=== PATIENT | male | born 1985 | race Caucasian/White ===

== ENCOUNTER 2020-05-31 20:33 | Emergency (ER) | payer SELFPAY ==
[2020-05-31] MEDS ORDERED: Albuterol/Ipratropium 3.0-0.5 MG/3 ML Neb Soln NEB ONE (21:22)
--- NOTE | 2020-05-31 21:22 | EDM.PDOC ---
ED HPI GENERAL MEDICAL PROBLEM - General Chief Complaint: Cardiovascular Problem Stated Complaint: TIGHTNESS IN CHEST Time Seen by Provider: 05/31/20 21:05 Source of Information: Reports: Patient History Limitations: Reports: No Limitations - History of Present Illness INITIAL COMMENTS - FREE TEXT/NARRATIVE: 35-year-old male arrives with chest pressure and tightness for the past 2 to 3 hours. It occurred 5 hours ago, seemed to go away but for the last 2 hours it has been back. Just feels it is hard to take a breath, really no pain no radiation of pain no diaphoresis no nausea or vomiting. Does has a history of a "stress-induced" small heart attack 7 years ago. He is a smoker, diabetic, and is out of all of his medications but cannot afford them.. He nonspecific with description of his symptoms. 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 Denies: Chest Pain, Cough, Loss of Appetite, Malaise, Nausea/Vomiting, Weakness - Related Data Allergies Allergy/AdvReac Type Severity Reaction Status Date / Time blueberry Allergy Hives Verified 05/31/20 20:48 Latex, Natural Rubber Allergy Swelling Verified 05/31/20 20:48 niacin AdvReac Redness Verified 05/31/20 20:48 Home Meds: Home Meds NK [No Known Home Meds] 05/31/20 [History] Past Medical History Cardiovascular History: Reports: Heart Murmur, Hypertension, [place] Respiratory History: Reports: COPD Psychiatric History: Reports: Depression, Psych Hospitalization(s), PTSD, Suicide Attempt, Other (See Below) Other Psychiatric History: schizoaffective Endocrine/Metabolic History: Reports: Diabetes, Type II, Obesity/BMI 30+ Dermatologic History: Reports: Other (See Below) Other Dermatologic History: cyst - Infectious Disease History Infectious Disease History: Reports: Chicken Pox Social & Family History - Tobacco Use Smoking Status *Q: Current Every Day Smoker Years of Tobacco use: 25 Packs/Tins Daily: 1 Used Tobacco, but Quit: No Second Hand Smoke Exposure: No - Caffeine Use Caffeine Use: Reports: Coffee, Energy Drinks - Recreational Drug Use Recreational Drug Use: No ED ROS GENERAL - Review of Systems Review Of Systems: See Below Constitutional: Denies: Fever, Chills, Malaise Respiratory: Reports: Shortness of Breath GI/Abdominal: Denies: Nausea, Vomiting : Reports: No Symptoms Musculoskeletal: Reports: Back Pain (Chronic and unchanged) ED EXAM, GENERAL - Physical Exam Exam: See Below Exam Limited By: No Limitations General Appearance: Alert, No Apparent Distress Eye Exam: Bilateral Eye: Other (Patient has a lazy left eye causing a di sconjugate gaze) Head: Atraumatic Neck: Supple, Non-Tender Respiratory/Chest: Wheezing (Patient has fairly scattered expiratory wheezes present) Cardiovascular: Regular Rate, Rhythm. No: No Murmur GI/Abdominal: Soft, Non-Tender, Other (Moderate obese) Extremities: No: Pedal Edema Neurological: Alert, Oriented, No Motor/Sensory Deficits Psychiatric: Normal Affect, Normal Mood Skin Exam: Warm, Dry EKG INTERPRETATION Rhythm: NSR EKG Interpretation Comments: No previous EKGs for comparison, patient does have some evidence of an old infarct with inferior Q waves in 3 and aVR. There is no ST changes. CBC CMP and troponin were obtained and the patient was given a DuoNeb. Course - Vital Signs Last Recorded V/S: Last Vital Signs Temp 95.2 F L 05/31/20 21:00 Pulse 95 05/31/20 21:46 Resp 18 05/31/20 21:46 BP 119/83 05/31/20 21:46 Pulse Ox 94 L 05/31/20 21:46 - Orders/Labs/Meds Orders: Active Orders 24 hr Category Date Time Status EKG Documentation Completion [RC] ASDIRECTED Care 05/31/20 21:17 Active RT Aerosol Therapy [RC] ASDIRECTED Care 05/31/20 21:22 Active EKG 12 Lead [EK] Routine Ther 05/31/20 21:17 Ordered Labs: Laboratory Tests 05/31/20 05/31/20 Range/Units 21:29 21:29 WBC 9.5 (4.5-11.0) K/uL RBC 5.00 (4.30-5.90) M/uL Hgb 15.8 H (12.0-15.0) g/dL Hct 44.5 (40.0-54.0) % MCV 89 (80-98) fL MCH 32 H (27-31) pg MCHC 36 (32-36) % Plt Count 170 (150-400) K/uL Neut % (Auto) 50 (36-66) % Lymph % (Auto) 42 (24-44) % [place] % (Auto) 6 (2-6) % Eos % (Auto) 2 (2-4) % Baso % (Auto) 1 (0-1) % Sodium 138 L (140-148) mmol/L Potassium 3.6 (3.6-5.2) mmol/L Chloride 99 L (100-108) mmol/L Carbon Dioxide 29 (21-32) mmol/L Anion Gap 13.6 (5.0-14.0) mmol/L BUN 9 (7-18) mg/dL Creatinine 1.0 (0.8-1.3) mg/dL Est Cr Clr Drug Dosing 107.72 mL/min Estimated GFR (MDRD) > 60 (>60) Glucose 383 H (74-106) mg/dL Calcium 8.4 L (8.5-10.1) mg/dL Total Bilirubin 0.9 (0.2-1.0) mg/dL AST 22 (15-37) U/L ALT 56 (12-78) U/L Alkaline Phosphatase 64 (46-116) U/L Troponin I < 0.017 (0.000-0.056) ng/mL Total Protein 7.3 (6.4-8.2) g/dL Albumin 3.6 (3.4-5.0) g/dL Globulin 3.7 H (2.3-3.5) g/dL Albumin/Globulin Ratio 1.0 L (1.2-2.2) Meds: Medications Discontinued Medications Generic Name Dose Route Start Last Admin Trade Name Freq PRN Reason Stop Dose Admin Albuterol/Ipratropium 3 ml 05/31/20 21:22 05/31/20 21:28 Duoneb 3.0-0.5 Mg/3 Ml NEB 05/31/20 21:23 3 ml ONETIME ONE Administration - Re-Assessments/Exams Free Text/Narrative Re-Assessment/Exam: 05/31/20 22:01 Patient was given a DuoNeb which resolved the symptoms almost immediately. CBC CMP were normal other than a glucose of 383, troponin was 0. EKG was negative. 05/31/20 22:01 Patient will be discharged with an albuterol handheld metered-dose inhaler, encouraged to get back on his metformin as soon as possible. He will also try to reduce his smoking. Departure - Departure Time of Disposition: 22:18 Disposition: Home, Self-Care 01 Clinical Impression: Poorly controlled type 2 diabetes mellitus Acute asthma exacerbation Qualifiers: Asthma severity: mild Asthma persistence: intermittent Qualified Code(s): J45.21 - Mild intermittent asthma with (acute) exacerbation Instructions: Hyperglycemia, [id number] Referrals: PCP,None [Primary Care Provider] - Forms: ED Department Discharge Care Plan Goals: Use your inhaler as needed for chest tightness or wheezing, try to reduce your smoking and it is very important for you to start taking care of your diabetes. Obtain a physician here in [place] as soon as possible to establish care. Sepsis Event Note (ED) - Evaluation Sepsis Screening Result: No Definite Risk - Focused Exam Vital Signs: Vital Signs Temp Pulse Resp BP Pulse Ox 05/31/20 21:46 95 18 119/83 94 L 05/31/20 21:30 92 110/80 05/31/20 21:04 92 140/83 05/31/20 21:00 95.2 F L 108 H 18 143/95 H 96 05/31/20 20:49 95.2 F L 108 H 18 143/95 H 96 - My Orders Last 24 Hours: My Active Orders 05/31/20 21:17 EKG Documentation Completion [RC] ASDIRECTED EKG 12 Lead [EK] Routine 05/31/20 21:22 RT Aerosol Therapy [RC] ASDIRECTED - Assessment/Plan Last 24 Hours: My Active Orders 05/31/20 21:17 EKG Documentation Completion [RC] ASDIRECTED EKG 12 Lead [EK] Routine 05/31/20 21:22 RT Aerosol Therapy [RC] ASDIRECTED
== END 2020-05-31 22:18 | disposition home or self-care (01) ==
LOC: JP.ED 20:33
DX: J45.21 Mild intermittent asthma with (acute) exacerbation (principal); E11.65 Type 2 diabetes mellitus with hyperglycemia; I10 Essential (primary) hypertension; I25.2 Old myocardial infarction; E66.9 Obesity, unspecified; F17.210 Nicotine dependence, cigarettes, uncomplicated; Z88.1 Allergy status to other antibiotic agents; Z91.040 Latex allergy status; Z91.018 Allergy to other foods; Z68.41 Body mass index [BMI] 40.0-44.9, adult
CPT/HCPCS: 36415; 80053; 84484; 85025; 93005; 94640; 99285-25; J7620-GY

== ENCOUNTER 2020-08-04 12:07 | Emergency (ER) | payer MEDICAID ==
--- NOTE | 2020-08-04 13:24 | EDM.PDOC ---
ED HPI GENERAL MEDICAL PROBLEM - General Chief Complaint: Cardiovascular Problem Stated Complaint: CHEST PAIN VIA [place]TH Time Seen by Provider: 08/04/20 12:11 Source of Information: Reports: Patient, EMS History Limitations: Reports: No Limitations - History of Present Illness INITIAL COMMENTS - FREE TEXT/NARRATIVE: 35-year-old male presents via EMS to the emergency department for evaluation of chest pain. Just prior to arrival patient was mowing the yard per his report when he developed sudden pain in the left anterior chest rating into his left arm. He states that this caused him to pass out for 20 to 30 seconds. He now reports ongoing pain in the left chest with touch to the area. He denies any injury to the area. He reports no associated nausea, vomiting, shortness of breath. Patient denies any illicit drug use such as methamphetamine, cocaine, heroin but admits to a history greater than 8 years ago. Denies any current alcohol use. Admits to tobacco use. Reports history of diabetes and compliance with medications. Denies any recent cough, fever, diarrhea, abdominal pain or vomiting. Patient reports no other associated symptoms. Onset: Today Onset Date: 08/04/20 Onset Time: 11:30 Duration: Constant Location: Reports: Chest (Patient) Quality: Reports: Sharp Severity: Moderate Improves with: Reports: None Worsens with: Reports: Movement Context: Reports: Activity (2) Associated Symptoms: Denies: Cough, Diaphoresis, Fever/Chills, Nausea/Vomiting, Shortness of Breath Treatments [employer]: Reports: See EMS Report Left Chest Pain Score (Numeric/FACES): 6 - Related Data Allergies Allergy/AdvReac Type Severity Reaction Status Date / Time blueberry Allergy Hives Verified 08/04/20 12:13 Latex, Natural Rubber Allergy Swelling Verified 08/04/20 12:13 niacin AdvReac Redness Verified 08/04/20 12:13 Home Meds: Home Meds Gabapentin [Neurontin] 100 mg PO BID 08/04/20 [History] Insulin Glarg,Human.Rec.Analog [Lantus Solostar] 25 units SQ BEDTIME 08/04/20 [History] Nicotine [Nicotine Patch] 1 patch TOP DAILY 08/04/20 [History] OLANZapine [Zyprexa] 5 mg PO BEDTIME 08/04/20 [History] metFORMIN [Glucophage XR] 2 tab PO BID 08/04/20 [History] Past Medical History HEENT History: Reports: Hard of Hearing, Impaired Vision Cardiovascular History: Reports: Heart Murmur, Hypertension, [place] Respiratory History: Reports: COPD Musculoskeletal History: Reports: Back Pain, Chronic Psychiatric History: Reports: Depression, Psych Hospitalization(s), PTSD, Suicide Attempt, Other (See Below) Other Psychiatric History: schizoaffective Endocrine/Metabolic History: Reports: Diabetes, Type II, Obesity/BMI 30+ Dermatologic History: Reports: Other (See Below) Other Dermatologic History: cyst - Infectious Disease History Infectious Disease History: Reports: Chicken Pox - Past Surgical History Head Surgeries/Procedures: Reports: None HEENT Surgical History: Reports: None Cardiovascular Surgical History: Reports: None Respiratory Surgical History: Reports: None Endocrine Surgical History: Reports: None Musculoskeletal Surgical History: Reports: None Dermatological Surgical History: Reports: None Social & Family History - Tobacco Use Smoking Status *Q: Current Every Day Smoker Years of Tobacco use: 25 Packs/Tins Daily: 2 - Caffeine Use Caffeine Use: Reports: Coffee, Energy Drinks, Soda, Tea - Recreational Drug Use Recreational Drug Use: No ED ROS GENERAL - Review of Systems Review Of Systems: Comprehensive ROS is negative, except as noted in HPI. ED EXAM, GENERAL - Physical Exam Exam: See Below Exam Limited By: No Limitations General Appearance: Alert, WD/WN, No Apparent Distress Head: Atraumatic, Normocephalic Neck: Normal Inspection, Supple, Non-Tender, Full Range of Motion Respiratory/Chest: No Respiratory Distress, Lungs Clear, Normal Breath Sounds, No Accessory Muscle Use, Other (Reproducible left anterior chest wall tenderness) Cardiovascular: Normal Peripheral Pulses, Regular Rate, Rhythm, No Edema, No Gallop, No JVD, No Murmur, No Rub Peripheral Pulses: 2+: Radial (L), Radial (R) GI/Abdominal: Normal Bowel Sounds, Soft, Non-Tender, No Distention Back Exam: Normal Inspection, Full Range of Motion Extremities: Normal Inspection, Normal Range of Motion, Non-Tender, Normal Capillary Refill, No Pedal Edema Neurological: Alert, Oriented, Normal Cognition, Normal Gait, No Motor/Sensory Deficits Psychiatric: Anxious Skin Exam: Warm, Dry, Intact, Normal Color, No Rash. No: Cyanosis, Diaphoretic EKG INTERPRETATION EKG Date: 08/04/20 Time: 12:36 Rhythm: NSR Rate (Beats/Min): 93 [place]: Normal P-Wave: Present QRS: Normal ST-T: Normal QT: Normal Comparison: NA - No Prior EKG EKG Interpretation Comments: Normal sinus rhythm with LVH Course - Vital Signs Last Recorded V/S: Last Vital Signs Temp 96.1 F L 08/04/20 12:10 Pulse 85 08/04/20 15:03 Resp 11 L 08/04/20 15:03 BP 146/80 H 08/04/20 15:03 Pulse Ox 96 08/04/20 15:03 - Orders/Labs/Meds Orders: Active Orders 24 hr Category Date Time Status Chest 2V [CR] Stat Exams 08/04/20 13:18 Taken EKG 12 Lead [EK] Stat Ther 08/04/20 12:12 Ordered Labs: Laboratory Tests 08/04/20 08/04/20 08/04/20 Range/Units 12:22 12:22 12:22 WBC 9.3 (4.5-11.0) K/uL RBC 4.84 (4.30-5.90) M/uL Hgb 14.9 (12.0-15.0) g/dL Hct 43.0 (40.0-54.0) % MCV 89 (80-98) fL MCH 31 (27-31) pg MCHC 35 (32-36) % Plt Count 191 (150-400) K/uL Neut % (Auto) 61 (36-66) % Lymph % (Auto) 31 (24-44) % [place] % (Auto) 6 (2-6) % Eos % (Auto) 2 (2-4) % Baso % (Auto) 0 (0-1) % D-Dimer, Quantitative < 100 (0.0-400.0) ng/mL Sodium 137 L (140-148) mmol/L Potassium 3.6 (3.6-5.2) mmol/L Chloride 101 (100-108) mmol/L Carbon Dioxide 23 (21-32) mmol/L Anion Gap 16.6 H (5.0-14.0) mmol/L BUN 9 (7-18) mg/dL Creatinine 0.9 (0.8-1.3) mg/dL Est Cr Clr Drug Dosing 112.38 mL/min Estimated GFR (MDRD) > 60 (>60) Glucose 292 H (74-106) mg/dL Calcium 8.5 (8.5-10.1) mg/dL Troponin I < 0.017 (0.000-0.056) ng/mL 08/04/20 Range/Units 14:39 WBC (4.5-11.0) K/uL RBC (4.30-5.90) M/uL Hgb (12.0-15.0) g/dL Hct (40.0-54.0) % MCV (80-98) fL MCH (27-31) pg MCHC (32-36) % Plt Count (150-400) K/uL Neut % (Auto) (36-66) % Lymph % (Auto) (24-44) % [place] % (Auto) (2-6) % Eos % (Auto) (2-4) % Baso % (Auto) (0-1) % D-Dimer, Quantitative (0.0-400.0) ng/mL Sodium (140-148) mmol/L Potassium (3.6-5.2) mmol/L Chloride (100-108) mmol/L Carbon Dioxide (21-32) mmol/L Anion Gap (5.0-14.0) mmol/L BUN (7-18) mg/dL Creatinine (0.8-1.3) mg/dL Est Cr Clr Drug Dosing mL/min Estimated GFR (MDRD) (>60) Glucose (74-106) mg/dL Calcium (8.5-10.1) mg/dL Troponin I < 0.017 (0.000-0.056) ng/mL Meds: Medications Discontinued Medications Generic Name Dose Route Start Last Admin Trade Name Freq PRN Reason Stop Dose Admin Ketorolac Tromethamine 15 mg 08/04/20 13:29 08/04/20 13:35 Toradol IM 08/04/20 13:30 15 mg ONETIME ONE Administration - Radiology Interpretation Free Text/Narrative:: 2 views of the chest were obtained AP and lateral Indication chest pain Visualized portion of the lungs are clear without evidence of infiltrate, effusion or pneumothorax. Cardiac silhouette is within normal limits. Mediastinum within normal limits. Visualized bony structures normal in appearance. Departure - Departure Time of Disposition: 15:00 Disposition: Home, Self-Care 01 Condition: Good Clinical Impression: Costochondral chest pain Instructions: Chest Wall Pain, [id number] Referrals: PCP,None [Ordering Only Provider] - Forms: ED Department Discharge Additional Instructions: 1. Ibuprofen 400 mg every 6-8 hours for pain. 2. Follow-up with your primary care doctor in 5 to 7 days for repeat a ssessment. 3. Seek immediate medical attention in an emergency setting with any rapidly worsening symptoms or concerns. Sepsis Event Note (ED) - Evaluation Sepsis Screening Result: No Definite Risk - Focused Exam Vital Signs: Vital Signs Temp Pulse Resp BP Pulse Ox 08/04/20 15:03 85 11 L 146/80 H 96 08/04/20 13:25 100 130/97 H 99 08/04/20 13:05 101 H 160/109 H 97 08/04/20 12:50 106 H 163/111 H 98 08/04/20 12:10 96.1 F L 94 15 126/84 95 - My Orders Last 24 Hours: My Active Orders 08/04/20 12:12 EKG 12 Lead [EK] Stat 08/04/20 13:18 Chest 2V [CR] Stat - Assessment/Plan Last 24 Hours: My Active Orders 08/04/20 12:12 EKG 12 Lead [EK] Stat 08/04/20 13:18 Chest 2V [CR] Stat Assessment:: 35-year-old male presented via EMS for chest pain with report of syncope while mowing the yard. Initial evaluation revealed reproducible left anterior chest wall pain. Vitals were within normal limits. No evidence of cardiac shock. Respiratory function normal with no hypoxia or distress. Chest x-ray obtained demonstrates no evidence of pneumothorax or widened mediastinum. D-dimer was negative making pulmonary embolus highly unlikely. EKG was nonischemic. Serial troponins were both negative. No evidence to suggest that patient is suffering from acute coronary syndrome, pulmonary embolus, aortic dissection, myocarditis/pericarditis, pneumothorax or pneumonia. Etiology of patient's pain is most consistent with costochondral chest wall pain. I am advising the patient on the use of ibuprofen. Patient improved with IM Toradol here in ED. Recommend follow-up with primary care doctor in 5 to 7 days. Patient states that he has an established follow-up appointment this Wednesday. Recommend immediate reevaluation in an emergency setting with any rapidly worsening symptoms or concerns. Medically stable and improved. Discharge home. Plan: 1. Ibuprofen 400 mg every 6-8 hours for pain. 2. Follow-up with your primary care doctor as planned this Wednesday. 3. Return to the emergency setting immediately with any rapidly worsening's or concerns.
[2020-08-04] MEDS ORDERED: Ketorolac 30 MG/ML SDV IM ONE (13:29)
--- NOTE | 2020-08-05 10:45 | CR ---
CHEST: 2 view CLINICAL HISTORY:Chest pain COMPARISON:None FINDINGS: The heart size, pulmonary vascularity and hilar structures are normal. No infiltrate effusion or pneumothorax is seen. IMPRESSION: No acute cardiopulmonary process.
== END 2020-08-04 15:18 | disposition home or self-care (01) ==
LOC: JP.ED 12:07
DX: R07.1 Chest pain on breathing (principal); R55 Syncope and collapse; I10 Essential (primary) hypertension; J44.9 Chronic obstructive pulmonary disease, unspecified; E11.9 Type 2 diabetes mellitus without complications; E66.9 Obesity, unspecified; I25.2 Old myocardial infarction; F32.9 Major depressive disorder, single episode, unspecified; F25.9 Schizoaffective disorder, unspecified; Z68.41 Body mass index [BMI] 40.0-44.9, adult; Z79.4 Long term (current) use of insulin; Z79.899 Other long term (current) drug therapy; Z91.018 Allergy to other foods; Z91.040 Latex allergy status; Z88.8 Allergy status to other drugs, medicaments and biological substances
CPT/HCPCS: 36415; 71046; 80048; 84484; 85025; 85379; 93005; 96372; 99285; J1885